=== PATIENT | male | born 1950 | race Caucasian/White ===

== ENCOUNTER 2018-02-27 11:25 | Day surgery (SDC) | payer OTHER ==
[~2018-02-27] VITALS: Ht 185.4 cm; Wt 106.1 kg
[~2018-02-27 11:25] MED LIST: ASPIR-LOW81 MG PO; ATORVASTATIN CA80 MG PO; Aspirin PO; ERGOCALCIF50000 UNIT PO; GABAPENTIN300 MG PO; GLIPIZIDE ER2.5 M1 PO; ISOSORBIDE MON120 M1 PO; LISINOPRIL20 MG PO; Lopid PO; METOPROLOL SUC100 MG PO; NITROGLYCERIN0.4 MG SL; Nitrostat,NitroQuick SL; PLAVIX75 MG PO; TIZANIDINE HCL4 MG PO; TRICOR145 MG PO; Toprol XL PO; ZANTAC150 MG PO; ZYRTEC10 M3 PO; Zantac,Taladine PO; Zestril,Prinivil PO; Zocor PO
== END 2018-02-27 19:00 | disposition home or self-care (01) ==
LOC: CATH 11:25
PROVIDERS: Internal Medicine Cardiovascular Disease
DX: I25.119 Atherosclerotic heart disease of native coronary artery with unspecified angina pectoris (principal); I65.23 Occlusion and stenosis of bilateral carotid arteries; I10 Essential (primary) hypertension; E11.51 Type 2 diabetes mellitus with diabetic peripheral angiopathy without gangrene; E78.5 Hyperlipidemia, unspecified; Z95.1 Presence of aortocoronary bypass graft; Z87.891 Personal history of nicotine dependence; Z79.82 Long term (current) use of aspirin
CPT/HCPCS: 82948; 93005; C1769; C1887; J1644; J2250; J3010; J7040